=== PATIENT | female | born 1975 | race Caucasian/White ===

== ENCOUNTER 2022-11-16 14:47 | Outpatient (CLI) | payer OTHER, SELFPAY ==
--- NOTE | 2022-11-16 15:00 | CRLHL7_ITS ---
For Patients: As a result of the Century Cures Act, medical imaging exams and procedure reports are released immediately into your electronic medical record. You may view this report before your referring provider. If you have questions, please contact your health care provider. BILATERAL DIGITAL SCREENING MAMMOGRAM WITH TOMOSYNTHESIS AND COMPUTER-AIDED DETECTION CLINICAL HISTORY: Routine screening exam. COMPARISON: 06/22/2021, 09/26/2018, 09/18/2017. TECHNIQUE: Digital mammogram in CC and MLO projections including computer-aided detection (CAD). Tomosynthesis utilized. BREAST COMPOSITION: There are areas of scattered fibroglandular density. FINDINGS: RIGHT Breast: Nodular density within the lower outer quadrant 5 cm from the nipple. LEFT Breast: No suspicious findings. IMPRESSION: RIGHT breast asymmetry/mass. RECOMMENDATIONS: Additional mammographic views of the RIGHT breast including 3D spot compression CC/MLO. RIGHT breast ultrasound may also be required. BI-RADS Category 0: Incomplete: Need Additional Imaging Evaluation and/or Prior Mammograms for Comparison [facility] will contact the patient for follow-up. A lay language report of this examination will be provided to the patient. Dictated by Gabriel Rae MD @ 11/17/2022 1:20:29 PM brinaj/Dictated by: Gabriel Rae MD @ 11/17/2022 1:20:00 PM (Electronically Signed)
== END 2022-11-16 14:48 | disposition home or self-care (01) ==
LOC: MAMMO 14:48
PROVIDERS: PCP Family Medicine; Visit Provider Physician Assistant
DX: Z12.31 Encounter for screening mammogram for malignant neoplasm of breast (principal); N63.10 Unspecified lump in the right breast, unspecified quadrant
CPT/HCPCS: 77063; 77067

== ENCOUNTER 2022-11-25 08:31 | Outpatient (CLI) | payer OTHER, SELFPAY ==
--- NOTE | 2022-11-25 08:45 | CRLHL7_ITS ---
For Patients: As a result of the Cures Act, medical imaging exams and procedure reports are released immediately into your electronic medical record. You may view this report before your referring provider. If you have questions, please contact your health care provider. DIGITAL DIAGNOSTIC RIGHT MAMMOGRAM USING TOMOSYNTHESIS AND COMPUTER-AIDED DETECTION INDICATION: Follow-up a RIGHT breast asymmetry. TECHNIQUE: Spot compression view of the RIGHT breast in the CC and MLO projection. Tomosynthesis and CAD utilized. COMPARISON: 11/16/2022. BREAST COMPOSITION: There are areas of scattered fibroglandular density. FINDINGS: The previously suggested nodular density is superimposed breast tissue. No underlying mass. No architecture distortion. No suspicious microcalcifications. Ultrasound is not recommended at this time. Annual mammography is recommended. The patient was notified of these results. IMPRESSION: Negative additional views of the RIGHT breast. Annual mammography is recommended. BI-RADS Category 1: Negative A lay language report of this examination will be provided to the patient. Dictated by: Garcia Hickman MD @11/25/2022 9:15:57 AM jj/Dictated by: Garcia Hickman MD @ 11/25/2022 9:15:00 AM (Electronically Signed)
== END 2022-11-25 08:32 | disposition home or self-care (01) ==
LOC: MAMMO 08:32
PROVIDERS: PCP Family Medicine; Visit Provider Physician Assistant
DX: R92.8 Other abnormal and inconclusive findings on diagnostic imaging of breast (principal)
CPT/HCPCS: 77065; G0279

== ENCOUNTER 2023-02-16 07:28 | Outpatient (CLI) | payer OTHER, SELFPAY ==
--- NOTE | 2023-02-16 09:16 | W.ANESCHARGE ---
Anesthesia Charges Start Date/Time Anesthesia Start Date: 02/16/23 Anesthesia Start Time: 08:30 Stop Date/Time Anesthesia Stop Date: 02/16/23 Anesthesia Stop Time: 09:12
--- NOTE | 2023-02-16 09:30 | W.ANESCHARGE ---
Anesthesia Charges Start Date/Time Anesthesia Start Date: 02/16/23 Anesthesia Start Time: 08:30 Stop Date/Time Anesthesia Stop Date: 02/16/23 Anesthesia Stop Time: 09:12
== END 2023-02-16 07:29 | disposition home or self-care (01) ==
LOC: OP CLINIC 07:28
PROVIDERS: PCP Physician Assistant; Visit Provider Surgery
DX: Z12.11 Encounter for screening for malignant neoplasm of colon (principal); K63.5 Polyp of colon; Z83.719 Family history of colon polyps, unspecified
CPT/HCPCS: 00811; 45381; 45385; 88305; J2704

== ENCOUNTER 2023-12-26 08:08 | Outpatient (CLI) | payer OTHER, SELFPAY ==
--- NOTE | 2023-12-26 08:15 | CRLHL7_ITS ---
For Patients: As a result of the Cures Act, medical imaging exams and procedure reports are released immediately into your electronic medical record. You may view this report before your referring provider. If you have questions, please contact your health care provider. BILATERAL DIGITAL SCREENING MAMMOGRAM WITH COMPUTER-AIDED DETECTION AND TOMOSYNTHESIS CLINICAL HISTORY: Routine screening exam. COMPARISON: 11/25/2022, 11/16/2022, 06/22/2021, 09/26/2018, 09/18/2017. TECHNIQUE: Digital mammogram in CC and MLO projections including computer-aided detection (CAD). Tomosynthesis was used in this interpretation. BREAST COMPOSITION: The breasts are almost entirely fatty. FINDINGS: RIGHT Breast: Nodular density within the lower outer quadrant 7-8 o`clock 6 cm from the nipple. LEFT Breast: No suspicious findings. IMPRESSION: RIGHT breast asymmetry/mass. RECOMMENDATIONS: Right breast ultrasound recommended. BI-RADS Category 0: Incomplete: Need Additional Imaging Evaluation and/or Prior Mammograms for Comparison [facility] will contact the patient for follow-up. A lay language report of this examination will be provided to the patient. Dictated by Gabriel Rae MD @ 12/26/2023 9:15:11 AM jj/Dictated by: Gabriel Rae MD @ 12/26/2023 9:15:00 AM (Electronically Signed)
== END 2023-12-26 08:09 | disposition home or self-care (01) ==
PROVIDERS: Visit Provider Physician Assistant
DX: Z12.31 Encounter for screening mammogram for malignant neoplasm of breast (principal); N63.10 Unspecified lump in the right breast, unspecified quadrant
CPT/HCPCS: 77063; 77067

== ENCOUNTER 2024-01-04 08:37 | Outpatient (CLI) | payer OTHER, SELFPAY ==
--- NOTE | 2024-01-04 08:45 | CRLHL7_ITS ---
For Patients: As a result of the Cures Act, medical imaging exams and procedure reports are released immediately into your electronic medical record. You may view this report before your referring provider. If you have questions, please contact your health care provider. BILATERAL DIAGNOSTIC MAMMOGRAM WITH TOMOSYNTHESIS 01/04/2024 CLINICAL HISTORY: RIGHT breast mass/asymmetry. COMPARISON: 12/26/2023. TECHNIQUE: Digital RIGHT mammogram in 2 projections. Tomosynthesis was used in this interpretation. Real-time ultrasound imaging of RIGHT breast with imaging documentation. Scanning was performed by both the technologist and the radiologist. BREAST COMPOSITION: Scattered fibroglandular densities. FINDINGS: 3D spot compression CC/MLO RIGHT breast mammogram images submitted. Persistent nodular density is present within the lower outer quadrant without architectural distortion. No suspicious calcifications. Targeted RIGHT breast ultrasound performed at 8 o`clock 8 cm from the nipple. In this location there is a simple circumscribed cyst at posterior depth measuring 5 x 4 x 8 millimeters. No suspicious findings. IMPRESSION: Benign cyst measuring 8 millimeters RIGHT breast 8 o`clock 7 cm from the nipple at posterior depth. No suspicious findings. No evidence of malignancy. RECOMMENDATIONS: Annual BILATERAL screening mammography. BI-RADS Category 2: Benign A lay language report of this examination will be provided to the patient. Dictated by Gabriel Rae MD @ 01/04/2024 11:27:59 AM SHEA/melanie DW/Dictated by: Gabriel Rae MD @ 01/04/2024 11:28:00 AM (Electronically Signed)
--- NOTE | 2024-01-04 09:15 | CRLHL7_ITS ---
For Patients: As a result of the Century Cures Act, medical imaging exams and procedure reports are released immediately into your electronic medical record. You may view this report before your referring provider. If you have questions, please contact your health care provider. Please see digital diagnostic BILATERAL mammogram performed the same day. CRL:sp 01/04/2024 DW/Dictated by: Gabriel Rae MD @ 01/04/2024 11:28:00 AM SP/Dictated by: Gabriel Rae MD @ 01/04/2024 11:28:00 AM (Electronically Signed)
== END 2024-01-04 08:38 | disposition home or self-care (01) ==
LOC: MAMMO 08:38
PROVIDERS: Visit Provider Physician Assistant
DX: N63.10 Unspecified lump in the right breast, unspecified quadrant (principal); R92.8 Other abnormal and inconclusive findings on diagnostic imaging of breast
CPT/HCPCS: 76642; 77065; G0279

== ENCOUNTER 2024-02-19 08:12 | Outpatient (CLI) | payer OTHER, SELFPAY ==
--- NOTE | 2024-02-19 09:27 | W.ANESCHARGE ---
Anesthesia Charges Start Date/Time Anesthesia Start Date: 02/19/24 Anesthesia Start Time: 08:30 Stop Date/Time Anesthesia Stop Date: 02/19/24 Anesthesia Stop Time: 09:12
--- NOTE | 2024-02-19 09:58 | W.ANESCHARGE ---
Anesthesia Charges Start Date/Time Anesthesia Start Date: 02/19/24 Anesthesia Start Time: 09:17 Stop Date/Time Anesthesia Stop Date: 02/19/24 Anesthesia Stop Time: 09:55
--- NOTE | 2024-02-19 10:09 | W.ANESCHARGE ---
Anesthesia Charges Start Date/Time Anesthesia Start Date: 02/19/24 Anesthesia Start Time: 09:17 Stop Date/Time Anesthesia Stop Date: 02/19/24 Anesthesia Stop Time: 09:55
== END 2024-02-19 08:13 | disposition home or self-care (01) ==
LOC: OP CLINIC 08:14
PROVIDERS: PCP Physician Assistant; Visit Provider Surgery
DX: D12.3 Benign neoplasm of transverse colon (principal); Z86.0100 Personal history of colon polyps, unspecified
CPT/HCPCS: 00811; 45385; 88305; J2704

== ENCOUNTER 2025-01-01 09:11 | Outpatient (CLI) | payer OTHER, SELFPAY ==
--- NOTE | 2025-01-01 09:15 | CRLHL7_ITS ---
For Patients: As a result of the Century Cures Act, medical imaging exams and procedure reports are released immediately into your electronic medical record. You may view this report before your referring provider. If you have questions, please contact your health care provider. INDICATION: BILATERAL SCREENING MAMMOGRAM, ASYMPTOMATIC 49 Y/O FEMALE COMPARISON: 01/04/2024, 12/26/2023, 11/25/2022 TECHNIQUE: Digital mammogram in CC and MLO projections including computer-aided detection (CAD) and tomosynthesis. BREAST COMPOSITION: There are scattered areas of fibroglandular density. FINDINGS: No suspicious findings. ASSESSMENT: BI-RADS 1 Negative RECOMMENDATION: Annual screening mammogram. A lay language report of this examination will be provided to the patient. Dictated by: Gabriel Rae MD @ 01/01/2025 09:35:43 (Electronically Signed)
== END 2025-01-01 09:12 | disposition home or self-care (01) ==
LOC: MAMMO 09:12
PROVIDERS: PCP Physician Assistant; Visit Provider Physician Assistant
DX: Z12.31 Encounter for screening mammogram for malignant neoplasm of breast (principal)
CPT/HCPCS: 77063; 77067

== ENCOUNTER 2025-01-07 09:03 | Outpatient (CLI) | payer OTHER, SELFPAY | END 2025-01-07 09:04 | disposition home or self-care (01) | LOC: NFLDREF 01-08 09:15 | PROVIDERS: PCP Physician Assistant; Referring Provider Physician Assistant; Visit Provider Physician Assistant | DX: Z13.9 Encounter for screening, unspecified (principal); Z13.6 Encounter for screening for cardiovascular disorders | CPT/HCPCS: 80053; 80061 ==

== ENCOUNTER 2025-02-04 15:46 | Outpatient (CLI) | payer OTHER, SELFPAY | END 2025-02-04 15:47 | disposition home or self-care (01) | LOC: NFLDREF 15:47 | PROVIDERS: PCP Physician Assistant; Visit Provider Physician Assistant | DX: N93.8 Other specified abnormal uterine and vaginal bleeding (principal) | CPT/HCPCS: 83001 ==

== ENCOUNTER 2025-02-20 06:56 | Outpatient (CLI) | payer OTHER, SELFPAY ==
--- NOTE | 2025-02-20 07:15 | CRLHL7_ITS ---
For Patients: As a result of the Century Cures Act, medical imaging exams and procedure reports are released immediately into your electronic medical record. You may view this report before your referring provider. If you have questions, please contact your health care provider. Indication: Post menopausal bleeding Technique: Real-time sonographic images of the pelvis were obtained transabdominally and transvaginally (for better assessment or to better visualize the endometrium) utilizing grayscale, color, and Doppler imaging. Comparison: 09/05/2017. Findings: Uterus: Appearance: Heterogeneous. Position: Anteverted. Size: 8.9 x 4.3 x 5.6 cm. Endometrial stripe: 2 mm. Right ovary: Size: 3.6 x 1.5 x 1.8 cm. Appearance: Normal morphology. No masses. Left ovary: Size: 2.4 x 1.1 x 1.6 cm. Appearance: Normal morphology. No masses. Free fluid: Trace free fluid within the posterior cul-de-sac. Impression: 1. Heterogeneous myometrium, which is nonspecific and may be seen in setting of adenomyosis myositis. 2. No endometrial thickening is seen. 3. Normal sonographic appearance of the bilateral ovaries. Dictated by Grey Lemons MD @ 02/23/2025 11:55:28 AM (Electronically Signed)
== END 2025-02-20 06:57 | disposition home or self-care (01) ==
LOC: US 06:58
PROVIDERS: PCP Physician Assistant; Visit Provider Physician Assistant
DX: N95.0 Postmenopausal bleeding (principal)
CPT/HCPCS: 76830; 76856

== ENCOUNTER 2025-03-20 07:58 | Outpatient (CLI) | payer OTHER, SELFPAY ==
--- NOTE | 2025-03-20 09:35 | P.ANES_ITS ---
Anesthesia Charges Start Date/Time Anesthesia Start Date: 03/20/25 Anesthesia Start Time: 08:49 Stop Date/Time Anesthesia Stop Date: 03/20/25 Anesthesia Stop Time: 09:28 Coding CPT Codes CPT Codes: ANES LWR INTST NDWA NOS - [id number] ([id number]) P1 - NORMAL HEALTHY PATIENT, QK - CARPENTERS 2-4 CNCRNT ANES PROC
--- NOTE | 2025-03-20 09:35 | W.ANESCHARGE ---
Anesthesia Charges Start Date/Time Anesthesia Start Date: 03/20/25 Anesthesia Start Time: 08:49 Stop Date/Time Anesthesia Stop Date: 03/20/25 Anesthesia Stop Time: 09:28 Coding CPT Codes CPT Codes: ANES LWR INTST NDMN NOS - [id number] ([id number]) P1 - NORMAL HEALTHY PATIENT, QK - EXPANSION ENVELOPE MAKER HAND 2-4 CNCRNT ANES PROC
--- NOTE | 2025-03-20 10:23 | P.ANES_ITS ---
Anesthesia Charges Start Date/Time Anesthesia Start Date: 03/20/25 Anesthesia Start Time: 08:49 Stop Date/Time Anesthesia Stop Date: 03/20/25 Anesthesia Stop Time: 09:28 Coding CPT Codes CPT Codes: LYNETTE LWR INTST NDOR NOS - [id number] ([id number]) P1 - NORMAL HEALTHY PATIENT, QK - VIDEOTAPE EDITOR 2-4 CNCRNT ANES PROC, QX - REGISTERED NURSE TEACHER SVC W/ MED DIRECTION
--- NOTE | 2025-03-20 10:23 | W.ANESCHARGE ---
Anesthesia Charges Start Date/Time Anesthesia Start Date: 03/20/25 Anesthesia Start Time: 08:49 Stop Date/Time Anesthesia Stop Date: 03/20/25 Anesthesia Stop Time: 09:28 Coding CPT Codes CPT Codes: LYNETTE LWR INTST NDUT NOS - 82972 ([id number]) P1 - NORMAL HEALTHY PATIENT, QK - KICK BOXER 2-4 CNCRNT ANES PROC, QX - SUMMER CHILD CAREGIVER SVC W/ MED DIRECTION
== END 2025-03-20 07:59 | disposition home or self-care (01) ==
LOC: OP CLINIC 07:59
PROVIDERS: PCP Physician Assistant; Visit Provider Surgery
DX: D12.3 Benign neoplasm of transverse colon (principal); D12.4 Benign neoplasm of descending colon; K57.30 Diverticulosis of large intestine without perforation or abscess without bleeding; Z86.0101 Personal history of adenomatous and serrated colon polyps
CPT/HCPCS: 00811; 45380; 45385; J2704